=== PATIENT | male | born 1945 | race Caucasian/White ===

== ENCOUNTER 2018-08-08 05:04 | Day surgery (SDC) ==
[2018-07-31 08:24] LABS: HEMATOCRIT 43.5 % (42.0-52.0); HEMOGLOBIN 14.1 g/dL (14.0-18.0); MCH 29.8 PG (27-31); MCHC 32.4 g/dL (33-37); RBC 4.73 XMIL (4.7-6.1); WBC 5.27 X1000 (4.8-10.8)
[2018-07-31 08:41] LABS: AGAP 11; BUN 22 mg/dL (8-22); CHLORIDE 102 mmol/L (98-107); COSMO 284; CREATININE 1.1 mg/dL (0.7-1.2); ESTIMATED GFR > 60; GLUCOSE 148 mg/dL (70-104); POTASSIUM 4.1 mmol/L (3.5-5.1); SODIUM 139 mmol/L (136-145); TCO2 26 mmol/L (25-35)
[2018-07-31 08:44] LABS: INR 0.86; PROTIME 12.4 Seconds (11.0-16.0)
[2018-08-08] MEDS ORDERED: LEVAQUIN 500 MG/D5W 500 MG/100 ML IVPB ONE (05:49)
[2018-08-08] MEDS ORDERED: PEPCID ONE (05:49)
[2018-08-08] MEDS ORDERED: REGLAN ONE (05:49)
[2018-08-08] MEDS ORDERED: LR 1,000 ML ONE ×2 (05:49→06:45)
[2018-08-08] MEDS ORDERED: DIPRIVAN 1% ONE (06:30)
[2018-08-08] MEDS ORDERED: SENSORCAINE-MPF 0.5%/EPI 1:200,000 ONE (06:45)
[2018-08-08] MEDS ORDERED: B & O 16A SUPP ONE (06:45)
[2018-08-08] MEDS ORDERED: OFIRMEV 1000 MG/ISOTONIC SOLN 1,000 MG/100 ML BOTTLE ONE (07:42)
[2018-08-08] MEDS ORDERED: ZOFRAN ONE (07:42)
[2018-08-08] MEDS ORDERED: DECADRON ONE (07:42)
[2018-08-08] MEDS ORDERED: ZEMURON ONE (07:48)
[2018-08-08] MEDS ORDERED: XYLOCAINE-MPF 2% ONE (07:48)
[2018-08-08] MEDS ORDERED: NEOSTIGMINE ONE (08:42)
[2018-08-08] MEDS ORDERED: ROBINUL ONE (08:43)
[2018-08-08] MEDS ORDERED: OFIRMEV 1000 MG/ISOTONIC SOLN 1,000 MG/100 ML BOTTLE IV PRN (15:00)
[2018-08-08] MEDS ORDERED: MORPHINE IV PRN (15:39)
[2018-08-08] MEDS ORDERED: DILAUDID IV PRN (15:45)
[2018-08-08] MEDS ORDERED: NORCO-10 PO PRN (15:45)
[2018-08-08] MEDS ORDERED: NORCO-5 PO PRN (15:45)
[2018-08-08] MEDS ORDERED: NORCO-7.5 PO PRN (15:45)
[2018-08-08] MEDS ORDERED: SODIUM CHLORIDE 0.9% INJ PRN (15:45)
[2018-08-08] MEDS ORDERED: TYLENOL PO PRN (15:45)
[2018-08-08] MEDS ORDERED: DITROPAN PO PRN (15:45)
[2018-08-08] MEDS ORDERED: LABETALOL IV PRN (15:45)
[2018-08-08] MEDS ORDERED: PHENERGAN PO PRN (15:45)
[2018-08-08] MEDS ORDERED: PHENERGAN PR PRN (15:45)
[2018-08-08] MEDS ORDERED: ZOFRAN IV PRN (15:45)
[2018-08-08] MEDS ORDERED: BENADRYL LIQUID PO PRN (15:45)
[2018-08-08] MEDS ORDERED: PHENERGAN IV PRN (15:45)
[2018-08-08] MEDS: NS 1,000 ML IV SCH (16:26)
[2018-08-08] MEDS ORDERED: D50W SYRINGE IV ONE (18:28)
[2018-08-08] MEDS: PERIDEX MT SCH (19:46)
[2018-08-08] MEDS: FLEXERIL PO SCH (19:48)
[2018-08-08] MEDS: MELATONIN PO SCH (19:48)
[2018-08-08] MEDS: COLACE PO SCH (19:48)
[2018-08-08] MEDS: GLUCOPHAGE XR PO SCH (19:49)
[2018-08-08] MEDS: ASTELIN NASAL SPRAY NAS SCH (19:50)
[2018-08-08] MEDS: APRESOLINE PO SCH (19:50)
[2018-08-08] MEDS: ZYRTEC PO SCH (19:50)
[2018-08-08] MEDS: HUMALOG SUBQ SCH (21:00)
[2018-08-08 21:39] LABS: URINE SOURCE CATH
[2018-08-08 22:04] LABS: UR EPITHELIAL CELLS <10 /HPF (<10); URINE BACTERIA NEGATIVE /HPF; URINE RBC TNTC /HPF (<10)
[2018-08-08 22:08] LABS: BILIRUBIN URINE NEGATIVE (NEGATIVE); BLOOD URINE LARGE (NEGATIVE); COLOR BROWN; GLUCOSE URINE >1000 mg/dL (NEGATIVE); KETONE URINE NEGATIVE (NEGATIVE); LEUKOCYTES URINE SMALL (NEGATIVE); NITRITE URINE NEGATIVE (NEGATIVE); PROTEIN URINE TRACE mg/dL (NEGATIVE); SP GRAVITY URINE 1.013; TURBIDITY URINE HAZY (CLEAR); UROBILINOGEN URINE NORMAL (NORMAL)
[2018-08-09] MEDS: COLACE PO SCH (01:34)
[2018-08-09] MEDS: FLEXERIL PO SCH (01:35)
[2018-08-09] MEDS: ASTELIN NASAL SPRAY NAS SCH (01:35)
[2018-08-09] MEDS: APRESOLINE PO SCH (01:35)
[2018-08-09] MEDS: PERIDEX MT SCH (01:36)
[2018-08-09] MEDS: MELATONIN PO SCH (01:36)
[2018-08-09] MEDS: GLUCOPHAGE XR PO SCH (01:36)
[2018-08-09] MEDS: ZYRTEC PO SCH (01:37)
[2018-08-09] MEDS: NS 1,000 ML IV SCH (01:38)
[2018-08-09 05:56] LABS: HEMATOCRIT 38.8 % (42.0-52.0); HEMOGLOBIN 12.6 g/dL (14.0-18.0); MCHC 32.5 g/dL (33-37); MCV 92.4 FL (81-99); MPV 10.2 FL (7.4-10.4); RBC 4.2 XMIL (4.7-6.1); RDW 13.6 % (11.5-14.5); WBC 9.48 X1000 (4.8-10.8)
[2018-08-09] MEDS ORDERED: LEVAQUIN 500 MG/D5W 500 MG/100 ML IVPB IV SCH (06:00)
[2018-08-09] MEDS: HUMALOG SUBQ SCH (06:13)
[2018-08-09 06:15] LABS: CALCIUM 9.1 mg/dL (8.8-10.2); CREATININE 1.4 mg/dL (0.7-1.2); POTASSIUM 4.2 mmol/L (3.5-5.1)
[2018-08-09 07:27] VITALS: BP 115/63
[2018-08-09] MEDS ORDERED: LOFIBRA PO SCH (09:00)
[2018-08-09] MEDS ORDERED: GLUCOTROL XL PO SCH (09:00)
[2018-08-09] MEDS ORDERED: SINGULAIR PO SCH (09:00)
[2018-08-09] MEDS ORDERED: GLUCOPHAGE PO SCH (09:00)
[2018-08-09] MEDS ORDERED: LIPITOR PO SCH (09:00)
[2018-08-09] MEDS ORDERED: TOPROL XL PO SCH (09:00)
--- NOTE | 2018-08-10 12:52 | OPERATIVE NOTE ---
PROCEDURE DATE: 08/08/2018 SURGEON: Anatoly Salamanca MD PREOPERATIVE DIAGNOSIS: High-grade prostate adenocarcinoma, elevated PSA. PROCEDURE: Robotic assisted laparoscopic prostatectomy with bilateral pelvic lymph node dissection, and laparoscopic urethral suspension. INDICATIONS: A 73-year-old male who has been seen with a rising PSA. He underwent 4K score which was elevated. He underwent office biopsy which revealed multifocal Aníbal 8, 7 and 6 prostate adenocarcinoma in 8/12 cores. He had a workup with CT scan, and bone scan revealing no definitive evidence of metastatic disease. He elected to proceed with robotic prostatectomy and pelvic lymph node dissection. He was counseled on the risks of the procedure specifically, long- term risk of urinary incontinence and erectile dysfunction. FINDINGS: Watertight vesicourethral anastomosis at 240 mL, adequate hemostasis at conclusion of the case. DESCRIPTION OF PROCEDURE: After obtaining informed consent, patient was brought to the operating room. Perioperative antibiotics and general endotracheal anesthesia were administered. He was placed in lithotomy position, prepped and draped in sterile fashion. An 18- Kiswahili Ortiz catheter was introduced with return of clear urine. We began by making a small stab incision in his umbilicus and introduced the Veress needle connected to saline-filled syringe. We confirmed positive drop test, followed by aspiration of fluid without evidence of GI contents or blood. This was followed by insufflating pneumoperitoneal pressure to 15 mmHg. Once that was completed, we marked out trocar sites in a standard prostatectomy fashion. 0.5% Marcaine with epinephrine in the amount of 10 mL was used for local anesthetic. A supraumbilical incision was made with Bovie electrocautery. The 12 mm trocar was introduced. His peritoneal cavity was inspected, and he had mild adhesions of the descending colon to the pelvic sidewall, but otherwise no obvious abnormalities. I placed the rest of the trocars under direct vision. He was placed in steep Trendelenburg position and the robot was docked. I began by sharply taking down the adhesions thereby freeing the descending colon, and allowing us to retract and expose them in the perineal and rectal lining. An incision was made in the perineum just 3 cm above the rectum and right vas deferens was isolated, dissected off and transected. This was followed by identification and dissection of right seminal vesicle. I avoided electrocautery laterally. The same thing was done on the left side. Then, we dissected anterior to vas deferens to the level of the prostate. We then dissected posterior to seminal vesicles by developing space in the perirectal area after incising Denonvilliers' fascia. Once that was done, attention was turned to dropping the bladder. We incised lateral to each medial umbilical ligament allowing us to access space of Retzius. When the bladder was dropped, endopelvic fascia was cleared from the overlying fat and incised to follow the contour of the prostate towards it's apex. Puboprostatic ligaments were divided sharply. The superficial dorsal venous complex was controlled with bipolar electrocautery. Deep dorsal venous complex was controlled with 0 V-Loc suture in a [id number] fashion with periosteal elevation. We turned attention to the bladder neck which was identified by gentle tugging on the Ortiz catheter with the balloon in place. We used monopolar cautery to incise the area of the bladder neck until the Ortiz catheter was seen and brought into the field, and placed in anterior traction. We then incised the bladder neck circumferentially. The prostate was placed in anterior traction. The plane was developed between the bladder and the prostate until previously dissected vas deferens and seminal vesicles were seen. We then turned attention to reflect the neurovascular bundles which were seen posterior lateral on each side. Hemoclips were used to reflect the bundles, and cautery was limited. Once that was done, we dissected the prostate posteriorly, developing the plane between the prostate and the rectum. The apex of the prostate was transected sharply. Given the extent of his disease, I did not perform maximal length sparing urethral technique. Once the urethra was transected sharply, the prostate was delivered out of the field and placed into the EndoCatch bag. We irrigated the operative field, and there was no evidence of significant bleeding. Attention was then turned to pelvic lymph node dissection. On the left side, we used the fourth arm to reflect the bladder medially. We identified the inferior edge of the external iliac vein and grasped the lymph packet tissue. The lymph nodes were excised on block using the following landmarks with pelvic sidewall laterally, perivesical fat medially, confluence of external iliac vein to its common iliac vein superiorly, and obturator vessels and nerve posteriorly. Please note, the obturator nerve was seen and preserved. Once the lymph node packet was extracted, it was placed into EndoCatch bag as well. Pneumoperitoneal pressure was decreased to 3 mmHg. Surgicel hemostatic agent was introduced into the lymphadenectomy bed. This was done to decrease the risk of lymphedema. We then performed the identical maneuver on the right side with the same landmarks for lymph node dissection including the pelvic sidewall, perivesical fat, confluence of the external iliac vein into the common iliac vein, and obturator nerve and vessels posteriorly. We also decreased pneumoperitoneal pressure to 30 mmHg without evidence of bleeding, and placed Surgicel hemostatic agent to decrease the chance of lymphedema postoperatively. Attention was then turned to the anastomosis. We started by performing the Rudy stitch with the use of 3 V-Loc suture to reapproximate perivesical and periurethral fascia in a running fashion. Those sutures were spared for future laparoscopic suspension. We then performed formal vesicourethral anastomosis with another 3-0 V-Loc suture in a clockwise and counterclockwise fashion and eventually cross tying the sutures. A fresh 18-Kiswahili Ortiz catheter was introduced and anastomosis was tested by instilling 240 mL of sterile solution. There was no evidence of leak. The bladder was then drained. We turned attention to the laparoscopic urethral suspension by placing previously used Rudy sutures through the periosteum just 2 cm lateral to the pubic tubercle on either side. The urethra appeared to suspend nicely. We then decreased pneumatic pressure and reinspected the field without evidence of bleeding or obvious adjacent organ injuries noted. The robot was undocked, supraumbilical incision was extended, prostate and pelvic lymph nodes were delivered and sent to pathology. The wounds were copiously irrigated. Supraumbilical fascia was closed with a #2 PDS in a running fashion. The 12 mm certified ophthalmic surgical assistant trocar fascia was closed with 0 Vicryl suture in a [id number] fashion. The wounds were irrigated again. 4-0 Monocryl sutures were used for subcuticular closure followed by application of Covidien adhesive agent. Ortiz catheter was kept to gravity drainage. She was extubated and taken to PACU for further recovery. Estimated Blood Loss was 50 mL. COMPLICATIONS: None. DISPOSITION: To PACU and subsequently to the floor with Ortiz catheter to gravity drainage. cc: MD JULIA Farley
== END 2018-08-09 09:34 | disposition home or self-care (01) ==
LOC: PAT 05:04 → SURHOLD 05:04 → 4N 14:21 → PAT 08-09 09:34
PROVIDERS: ATTEND Urology
CPT/HCPCS: 80048; 81001; 82948; 85027; 85610; 85730; 87088; 88307; 88309; 88313; 93005; 94761; 94799; A9270; J0131; J1100; J1815; J1956; J2405; J7030; J7120; S2900; XXXXX